=== PATIENT | female | born 1955 | race Caucasian/White ===

== ENCOUNTER → 2018-12-24 14:22 | Outpatient (POV) | payer OTHER, SELFPAY | DX: Z00.00 Encounter for general adult medical examination without abnormal findings (principal) ==

== ENCOUNTER 2020-11-17 21:08 | Observation (INO) | payer MEDICARE, SELFPAY ==
[2020-11-17] VITALS (7 sets, daily range): BP systolic 147–194; BP diastolic 69–101; PULSE 73–81; RESP 16–23; TEMP 37.2; O2SAT 95–99; BMI 22.3
--- NOTE | 2020-11-17 21:03 | ECG_ITS ---
APPROVED REPORT Exam: Resting ECG HR:71 bpm ECG Measurements Heart Rate 71 AXES NM 152 P 57 QRSd 78 QRS 74 QT 364 T 78 QTc 395 Conclusion Normal sinus rhythm Septal infarct, age undetermined Abnormal ECG Electronically signed by : Antonio Vega, 11/18/2020 10:20:08
--- NOTE | 2020-11-17 21:18 | XR_ITS ---
PROCEDURE INFORMATION: Exam: XR Chest Exam date and time: 11/17/2020 9:18 PM Age: 65 years old Clinical indication: Sternal or substernal pain; Patient HX: Mid chest pain non smoker; Additional info: Cp TECHNIQUE: Imaging protocol: XR of the chest. Views: 2 views. COMPARISON: No relevant prior studies available. FINDINGS: Lungs: Mild pulmonary hyperinflation.There is no evidence of focal pulmonary consolidation. Pleural spaces: Unremarkable. No significant pleural effusion. No pneumothorax. Heart/Mediastinum: The cardiac silhouette is normal. Bones/joints: Mild thoracic spine degenerative changes, disc narrowing and spondylosis. The sternum appears intact, as visualized. IMPRESSION: No acute findings.
--- NOTE | 2020-11-17 21:20 | HMH.EDCP ---
ED Disposition Clinical Impression: Chest pain Qualifiers: Chest pain type: precordial pain Qualified Code(s): R07.2 - Precordial pain Disposition: Admitted as Observation Condition on Discharge: Good Referrals: Provider,Referral, [Referring] - - Critical Care Critical Care Time: No Attestation: On 11/17/20, the high probability of a clinically significant, sudden or life threatening deterioration of the following system(s) required my full and direct attention, intervention and personal management. The time I documented below is in addition to time spent performing reported procedures but includes the following listed in this critical care notation. Medical Decision Making - Medical Records Medical records reviewed: Yes: I reviewed the patient's medical records. - [place] Inquiry Pt receiving controlled substance: No Vital Signs: 11/17/20 21:08 11/17/20 21:20 11/17/20 21:31 Temperature 98.9 F Temperature Source Oral Pulse Rate 76 80 Pulse Rate [Left Radial] 78 Respiratory Rate 16 Blood Pressure 174/100 H 147/69 H Blood Pressure [Right Arm] 194/101 H Blood Pressure Mean 118 113 Blood Pressure Mean [Right Arm] 132 Blood Pressure Source [Right Arm] Automatic Cuff Blood Pressure Position [Right Arm] Supine 02 Sat by Pulse Oximetry 97 99 95 Oxygen Delivery Method Room Air 11/17/20 22:00 Temperature Temperature Source Pulse Rate 75 Pulse Rate [Left Radial] Respiratory Rate 16 Blood Pressure 148/79 H Blood Pressure [Right Arm] Blood Pressure Mean 102 Blood Pressure Mean [Right Arm] Blood Pressure Source [Right Arm] Blood Pressure Position [Right Arm] 02 Sat by Pulse Oximetry 96 Oxygen Delivery Method Room Air - Lab Data Lab results reviewed: Yes: I reviewed the patient's lab results. Lab Results 11/17/20 21:05: WBC 4.7 L, RBC 4.81, Hgb 15.4, Hct 45.2, MCV 93.9, MCH 32.1 H, MCHC 34.2, RDW 13.6, Plt Count 197, MPV 7.9, Neut % (Auto) 47.6, Lymph % (Auto) 41.6, [place] % (Auto) 7.0, Eos % (Auto) 3.2, Baso % (Auto) 0.6, Neut # (Auto) 2.3, Lymph # (Auto) 2.0, [place] # (Auto) 0.3, Eos # (Auto) 0.2, Baso # (Auto) 0.0 11/17/20 21:05: Sodium 140, Potassium 4.0, Chloride 103, Carbon Dioxide 32 H, Anion Gap 9.0, BUN 6 L, Creatinine 0.70, Estimated Creat Clear 52, Estimated GFR 84, Est GFR ( Amer) 102, Glucose 116 H, Calcium 9.9, Troponin I < 0.01, C-Reactive Protein 4.5 H 11/17/20 21:05: ESR 21 11/17/20 21:05: Total Bilirubin 0.5, Direct Bilirubin 0.2, Conjugated Bilirubin 0.0, Indirect Bilirubin 0.3, Unconjugated Bilirubin 0.3, AST 41 H, ALT 23, Alkaline Phosphatase 103, Total Protein 8.0, Albumin 4.6, Procalcitonin 0.072 11/17/20 21:05: Amylase 92, Lipase 201 Result diagrams: 11/17/20 21:05 11/17/20 21:05 Orders (Tests/Meds): ED MEDICATIONS Generic Name Dose Route Start Last Admin Trade Name Freq PRN Reason Stop Dose Admin Sodium Chloride 1,000 mls @ 999 mls/hr 11/17/20 21:30 11/17/20 21:22 Sod Chlor 0.9% 1000ml Bag IV 11/17/20 22:30 999 mls/hr .Q1H1M REYNA Administration Sodium Chloride 8 ml 11/17/20 21:18 Sodium Chloride 0.9% 10ml Vial IV 12/17/20 21:17 NEEDED PRN dilute pepcid Discontinued Medications Generic Name Dose Route Start Last Admin Trade Name Freq PRN Reason Stop Dose Admin Famotidine 20 mg 11/17/20 21:18 11/17/20 21:21 Famotidine 20mg/2ml Vial IV 11/17/20 21:19 20 mg ONCE ONE Administration Metoclopramide HCl 10 mg 11/17/20 21:18 11/17/20 21:21 Metoclopramide Hcl 10mg/2ml Vial IVP 11/17/20 21:19 10 mg ONCE ONE Administration Nitroglycerin 0.4 mg 11/17/20 21:24 11/17/20 21:23 Nitroglycerin 0.4mg Sl Tablet SL 11/17/20 21:25 0.4 mg ONCE ONE Administration Nitroglycerin 1 gm 11/17/20 21:54 11/17/20 21:55 Nitroglycerin 1 Gm Ointment TD 11/17/20 21:55 1 gm ONCE ONE Administration ORDERS Category Date Time Status Covid-19 Nasal PCR ([facility]) Routine Lab 11/17/20 22:27 O
--- NOTE | 2020-11-17 21:24 | PC.NURSE ---
pt gone to radiology
[2020-11-17 21:25] LABS: Basophils % 0.6 % (0.1-2.0); Eosinophils # 0.2 K/mm3 (0.0-0.4); Eosinophils % 3.2 % (0.1-12.0); Hematocrit 45.2 % (37.0-47.0); Hemoglobin 15.4 g/dL (12.2-16.2); Lymphocytes % 41.6 % (10-50); Mean Corpuscular HGB Conc 34.2 g/dL (31.8-35.4); Mean Corpuscular Hemoglobin 32.1 pg (27.0-31.2); Mean Corpuscular Volume 93.9 fl (81-99); Mean Platelet Volume 7.9 fl (7.4-10.4); Monocytes # 0.3 K/mm3 (0.1-1.0); Neutrophils # 2.3 K/mm3 (1.8-7.8); Neutrophils % 47.6 % (37.0-80.0); Platelet Count 197 K/mm3 (142-424); Red Blood Count 4.81 M/mm3 (4.20-5.40); Red Cell Distribution Width 13.6 % (11.5-17.5); White Blood Count 4.7 K/mm3 (4.8-10.8)
--- NOTE | 2020-11-17 21:27 | PC.NURSE ---
pt is back from radiology
[2020-11-17 21:30] LABS: Alanine Aminotransferase 23 U/L (12-78); Albumin Level 4.6 g/dl (3.5-5.0); Alkaline Phosphatase 103 U/L (38-126); Aspartate Amino Transferase 41 U/L (14-36); Bilirubin,Direct 0.2 mg/dl (0.0-0.4); Bilirubin,Indirect 0.3 mg/dL (0.0-0.9); Bilirubin,Total 0.5 mg/dl (0.2-1.3); Bilirubin,Unconjugated 0.3 mg/dL (0.0-1.1)
[2020-11-17 21:32] LABS: Blood Urea Nitrogen 6 mg/dl (7-17); Calcium 9.9 mg/dl (8.4-10.2); Carbon Dioxide 32 mmol/L (22.0-30.0); Chloride 103 mmol/L (98-107); Creatinine Clearance Estimated 52 mL/min (50-200); Estimated Glomerular Filt Rate 84 ml/min (>60); GFR (African American) 102 ML/MIN (>60); Glucose 116 mg/dl (74-100); Sodium 140 mmol/L (136-145)
[2020-11-17 21:37] LABS: C-Reactive Protein 4.5 mg/L (0-4)
[2020-11-17 21:40] LABS: Amylase 92 U/L (30-110); Lipase 201 U/L (23-300)
[2020-11-17 21:50] LABS: Erythrocyte Sedimentation Rate 21 mm/hr (0-30)
[2020-11-17 21:51] LABS: Procalcitonin 0.072 ng/mL (0.0-2.0)
[2020-11-17 21:54] LABS: Troponin I < 0.01 ng/ml (0.00-0.034)
--- NOTE | 2020-11-17 22:22 | ECG_ITS ---
APPROVED REPORT Exam: Resting ECG HR:73 bpm ECG Measurements Heart Rate 73 AXES NJ 168 P 65 QRSd 82 QRS 69 QT 384 T 82 QTc 423 Conclusion Normal sinus rhythm Low voltage QRS Septal infarct, age undetermined Abnormal ECG Electronically signed by : Antonio Vega, 11/18/2020 10:19:33
--- NOTE | 2020-11-17 22:28 | PC.NURSE ---
Dr. Weaver s/w Dr. Walker
[2020-11-17 22:31] LABS: Adenovirus,PCR Not Detected (NotDetected); Bordetella Pertussis Not Detected (NotDetected); Chlamydophila Pneumoniae, PCR Not Detected (NotDetected); Coronavirus 19, PCR Not Detected (NotDetected); Coronavirus 229E Not Detected (NotDetected); Coronavirus NL63 Not Detected (NotDetected); Coronavirus OC43 Not Detected (NotDetected); Coronovirus HKU1,PCR Not Detected (NotDetected); Human Metapneumovirus Not Detected (NotDetected); Influenza A, PCR Not Detected (NotDetected); Influenza AH1, 2009 Not Detected (NotDetected); Influenza AH1, PCR Not Detected (NotDetected); Influenza AH3,PCR Not Detected (NotDetected); Influenza B, PCR Not Detected (NotDetected); Mycoplasma Pneumoniae, PCR Not Detected (NotDetected); Parainfluenza 1, PCR Not Detected (NotDetected); Parainfluenza 2, PCR Not Detected (NotDetected); Parainfluenza 3, PCR Not Detected (NotDetected); Parainfluenza 4, PCR Not Detected (NotDetected); Respiratory Syncytial Virus Not Detected (NotDetected); Rhinovirus/Enterovirus Not Detected (NotDetected)
[2020-11-17 22:42] LABS: HDL Cholesterol 36 mg/dl (40-60)
[2020-11-17 22:53] LABS: Chol/HDL Ratio 9.4 (1-3.5); Cholesterol 337 mg/dl (140-200); Direct LDL Cholesterol 167.55 mg/dL (100-129); Triglycerides 621 mg/dl (30-150)
[2020-11-18] VITALS (10 sets, daily range): BP systolic 129–161; BP diastolic 74–96; PULSE 60–84; RESP 14–18; TEMP 36.4–36.9; O2SAT 94–100; BMI 22.1
--- NOTE | 2020-11-18 00:34 | PC.NURSE ---
PT ARRIVED O FLOOR BY WHEELCHAIR
[2020-11-18 00:57] LABS: Troponin I < 0.01 ng/ml (0.00-0.034)
[2020-11-18 03:40] LABS: Basophils % 0.6 % (0.1-2.0); Eosinophils # 0.1 K/mm3 (0.0-0.4); Eosinophils % 3.1 % (0.1-12.0); Lymphocytes # 1.8 K/mm3 (0.7-4.5); Lymphocytes % 44.2 % (10-50); Mean Corpuscular Hemoglobin 32.5 pg (27.0-31.2); Mean Corpuscular Volume 92.9 fl (81-99); Mean Platelet Volume 7.9 fl (7.4-10.4); Monocytes # 0.3 K/mm3 (0.1-1.0); Monocytes % 6.6 % (1.7-9.3); Neutrophils # 1.9 K/mm3 (1.8-7.8); Neutrophils % 45.5 % (37.0-80.0); Platelet Count 152 K/mm3 (142-424); Red Blood Count 4.19 M/mm3 (4.20-5.40); Red Cell Distribution Width 13.4 % (11.5-17.5); White Blood Count 4.2 K/mm3 (4.8-10.8)
[2020-11-18 03:47] LABS: Anion Gap 6.9 mEq/L (5-15); Blood Urea Nitrogen 5 mg/dl (7-17); Carbon Dioxide 28 mmol/L (22.0-30.0); Chloride 109 mmol/L (98-107); Creatinine Clearance Estimated 52 mL/min (50-200); Estimated Glomerular Filt Rate 84 ml/min (>60); GFR (African American) 102 ML/MIN (>60); Glucose 94 mg/dl (74-100); Potassium 3.9 mmoL/L (3.5-5.1); Sodium 140 mmol/L (136-145)
[2020-11-18 03:54] LABS: Hemoglobin 13.6 g/dL (12.2-16.2)
[2020-11-18 03:59] LABS: Troponin I < 0.01 ng/ml (0.00-0.034)
[2020-11-18 04:08] LABS: Calcium 8.9 mg/dl (8.4-10.2)
--- NOTE | 2020-11-18 06:39 | PC.NURSE ---
No acute changes noted. Pt is resting well. No c/o pain since arrival to floor. VSS. Pt remains NSR on telemetry. No concerns at this time. Will continue to monitor.
--- NOTE | 2020-11-18 07:08 | CA_ITS ---
APPROVED REPORT Exam: Exercise Treadmill Technologist: erin gonzalez, Ht: 5 ft 4 in Wt: 129 lbs BSA: 1.62 m2 HR: 91 bpm BP: 180/100 mmHg Indications: CP Medical History Medications: Synthroid,,,,, Allergies: NKA Cardiac Risk Factors: Hyperlipidemia Stress Test Details Test: Angel HR Resting HR: 85 bpm Max Heart Rate (APMHR): 155.214051 bpm Max HR Achieved: 160 bpm Target HR (85% APMHR): 131.585440 bpm % of APMHR: 103.23 BP Resting BP: 186/100 mmHg Max BP: 186/100 mmHg Recovery BP: 180.0/97.0 mmHg ECG Resting ECG: Sinus rhythm Clinical Exercise duration: 05:43 min Highest Stage Achieved: Stage 2: 2.5 mph at 12% grade. Exercise capacity: 7.0 METs Stress ECG Conclusion Angel protocol completed. Patient had chest pain and SOB during peak exercise which resolved during recovery. No ectopy. Less than 1.5mm ST Depression. Images to follow. Test Summary REST . . . . . . . Standing REST 02:47 0.0 0.0 85 . 186/100 . . Stage 1 01:00 10.0 1.7 113 . . . . Stage 1 02:00 10.0 1.7 132 . . . . Stage 1 03:00 10.0 1.7 139 . 161/102 . . Stage 2 01:00 12.0 2.5 149 . . . . Stage 2 . . . . . . . Cardiolite injected Stage 2 02:00 12.0 2.5 156 . . . . Stage 2 02:43 12.0 2.5 158 . 171/105 . Stop exercise at 05:43 RECOVERY 01:00 0.0 0.0 123 . . . . RECOVERY 02:00 0.0 0.0 96 . . . . RECOVERY 03:00 0.0 0.0 105 . 180/ 97 . . RECOVERY 04:00 0.0 0.0 90 . 180/ 97 . . RECOVERY 05:00 0.0 0.0 96 . 146/ 93 . . RECOVERY 05:42 0.0 0.0 89 . 160/ 93 . . Electronically signed by : Richard Kelly, 11/18/2020 15:12:47
--- NOTE | 2020-11-18 07:08 | NM_ITS ---
APPROVED REPORT Exam: Nuclear Stress Test Indication: HYPERLIPIDEMIA, FM HX, C.P., PALPATATIONS, FATIGUE Patient Location: Inpatient Stress Tech: Fatou Shehean MA Tech:TITI Parry RT (R)(N)(M) Ht: 5 ft 4 in Wt: 130 lbs Bra Size: 36C HR: 91 bpm BP: 180/100 mmHg BSA: 1.63 m2 BMI: 22.3 History: HYPERLIPIDEMIA, FM HX, C.P., PALPATATIONS, FATIGUE Procedure: Patient exercised on Angel protocol 5:43 minutes and sec, resting heart rate 91 bpm, resting blood pressure 180/100 mmHg, with exercise maximum heart rate achived was 160 bpm which is 103 % of the maximum predicted heart rate and blood pressure was 171/105 mmHg. Test was stopped due to FATIGUE. Patient denied any complaint of chest pain. Patient has Adequate exercise capacity, achieved 7.0 METs of workload on treadmill, the blood pressure response to exercise was Abnormal. Electrocardiogram Resting electrocardiogram showed sinus rhythm, nonspecific ST-T changes, with exercise there is additional millimeter ST segment depression noted from the baseline EKG. The EKG portion of the exercise Myoview is nondiagnostic due to baseline abnormal EKG. Cardiac Stress and Resting SPECT Images: Cardiac Stress and Resting SPECT images were obtained using technetium 99m Myoview 31.5 mCi stress and 10.07 mCi at rest. Gated SPECT for analysis of segmental wall motion and calculation of the ejection fraction also done. Prone images were also obtained. Cardiac stress and resting SPECT images show uniform myocardial activity without segmental perfusion abnormality, computer derived ejection fraction is 62% with no regional wall motion abnormality, right ventricle is normal size and contractility. Conclusion: 1. The EKG portion of the exercise Myoview is nondiagnostic due to baseline abnormal EKG, patient has adequate exercise capacity achieved 7 mets of workload on treadmill, the blood pressure response to exercise was abnormal, there is no exercise-induced chest discomfort test was stopped due to shortness of breath and fatigue. 2. No scintigraphic evidence of reversible ischemia seen, computer derived ejection fraction 62% with no regional wall motion abnormality, right ventricle is normal size and contractility. Electronically signed by : Richard Kelly, 11/18/2020 15:24:06
--- NOTE | 2020-11-18 07:25 | HMH.HP ---
*Admission Date: 11/18/20 *Chief complaint: Chest pain *History of present illness: 65-year-old female presented to the emergency department yesterday evening with lower chest and epigastric discomfort that she describes as feeling like gas . Patient was at home when pain began. She was at rest when pain began. Earlier that evening patient had eaten pizza followed by ice cream and a soft drink. However once discomfort did not relieve after several minutes patient sought treatment at the emergency department. She denies associated nausea, diaphoresis, shortness of breath. She does admit that recently she has had similar discomfort when she is walking for exercise. When she has her exertional discomfort she also denies shortness of breath, nausea, diaphoresis. Discomfort is nonradiating. [facility] History I have reviewed the patient's past medical history: Yes Medical History: Reports:: Hyperlipidemia Denies:: Cancer, Diabetes Mellitus Type 1, Diabetes Mellitus Type 2, MRSA *Have you ever received a pneumonia vaccine?: No *Have you received a flu vaccine this season?: No Other Surgeries: Yes: Colonoscopy Amputation: No - *Social History Smoking Status: Former smoker Tobacco Type: cigarettes Alcohol Intake: never *Occupational Status:: retired *Travel in the last 8 weeks: None Family Hx:: Cancer, Coronary Artery Disease, Heart Attack, Hyperlipidemia, Hypertension, Thyroid Disorder, Alcoholism Review of Systems - Constitutional Denies anorexia, Denies body ache(s) - Eyes Denies blurry vision - ENT Denies bleeding gums - *Cardiovascular Reports chest pain, Reports chest pain with activity, Denies leg pain with activity, Denies shortness of breath, Denies shortness of breath with activity, Denies generalized swelling, Denies lightheadedness - *Respiratory Denies change in phlegm color, Denies chest congestion, Denies cough - *Gastrointestinal Denies abdominal pain, Denies belching, Denies bloating - *Genitourinary Denies absent period, Denies painful urination - *Musculoskeletal Denies joint pain - Integumentary/Breasts Denies hair loss - *Neurologic Denies localized weakness, Denies headache(s), Denies seizure-like activity Meds Home Medications Medication Instructions Recorded Confirmed Type Levothyroxine Sodium [Synthroid 112 mcg PO DAILY 11/17/20 11/18/20 History 112mcg (0.112mg) tablet] Allergies Allergy/AdvReac Type Severity Reaction Status Date / Time No Known Allergies Allergy Verified 11/17/20 21:09 Exam Vital signs and Labs for Last 24 Hours: Temp Pulse Resp BP Pulse Ox 97.6 F 74 17 150/91 H 99 11/18/20 04:00 11/18/20 04:00 11/18/20 04:00 11/18/20 04:00 11/18/20 04:00 Laboratory Results - last 24 hr 11/17/20 21:05: WBC 4.7 L, RBC 4.81, Hgb 15.4, Hct 45.2, MCV 93.9, MCH 32.1 H, MCHC 34.2, RDW 13.6, Plt Count 197, MPV 7.9, Neut % (Auto) 47.6, Lymph % (Auto) 41.6, [place] % (Auto) 7.0, Eos % (Auto) 3.2, Baso % (Auto) 0.6, Neut # (Auto) 2.3, Lymph # (Auto) 2.0, [place] # (Auto) 0.3, Eos # (Auto) 0.2, Baso # (Auto) 0.0 11/17/20 21:05: Sodium 140, Potassium 4.0, Chloride 103, Carbon Dioxide 32 H, Anion Gap 9.0, BUN 6 L, Creatinine 0.70, Estimated Creat Clear 52, Estimated GFR 84, Est GFR ( Amer) 102, Glucose 116 H, Calcium 9.9, Troponin I < 0.01, C-Reactive Protein 4.5 H 11/17/20 21:05: ESR 11/17/20 21:05: Total Bilirubin 0.5, Direct Bilirubin 0.2, Conjugated Bilirubin 0.0, Indirect Bilirubin 0.3, Unconjugated Bilirubin 0.3, AST 41 H, ALT 23, Alkaline Phosphatase 103, Total Protein 8.0, Albumin 4.6, Procalcitonin 0.072 11/17/20 21:05: Amylase 92, Lipase 201 11/17/20 21:05: Triglycerides 621 H, Cholesterol 337 H, LDL Cholesterol Direct 167.55 H, HDL Cholesterol 36 L, Cholesterol/HDL Ratio 9.4 H 11/17/20 21:50: Chlamy pneumoniae PCR Not detected, Adenovirus (PCR) Not detected, B. pertussis DNA (PCR) Not detected, Coronavirus OC43 (PCR) Not detected, Coronavirus HKU1 (PCR)
--- NOTE | 2020-11-18 10:15 | HMH.PHAVTE ---
[facility] Pharmacy VTE Monitoring - Patient Demographics Admission date: 11/18/20 Report Date: 11/18/20 Time: 10:16 Allergies/Adverse Reactions: Patient Allergies No Known Allergies Allergy (Verified 11/17/20 21:09) Height: 1.63 m Weight: 58.684 kg Patient Problems: Current Active Problems Chest pain (Acute) - VTE Risk Labs: VTE Related Lab Results Hgb 13.6 g/dL (12.2-16.2) D 11/18/20 03:30 Hct 39.0 % (37.0-47.0) 11/18/20 03:30 Plt Count 152 K/mm3 (142-424) 11/18/20 03:30 BUN 5 mg/dl (7-17) L 11/18/20 03:30 Creatinine 0.70 mg/dl (0.52-1.04) 11/18/20 03:30 Estimated Creat Clear 52 mL/min (50-200) 11/18/20 03:30 Was VTE Risk Assessment Performed: Yes VTE Score: 1 VTE Risk Level: Low Risk Clinical Trial Participant: No - Prophylaxis Types of VTE Prophylaxis: TEDS Knee High
--- NOTE | 2020-11-18 11:45 | INFXCTL.NOTE ---
Alert and oriented. Have educated pt of need for tennis shoes for stress test. Have also made pt aware the plan for the stress test is to be scheduled for 12:00. CB in reach and has been at bedside. Pt has no c/o's of pain or discomfort. VSS.
--- NOTE | 2020-11-18 14:16 | PC.NURSE ---
Pt still off floor for stress test at this time.
--- NOTE | 2020-11-18 15:57 | HMH.DCSUM ---
General - General Admission date:: 11/18/20 Discharge date: 11/18/20 HPI HPI: 65-year-old female presented to the emergency department yesterday evening with lower chest and epigastric discomfort that she describes as feeling like gas . Patient was at home when pain began. She was at rest when pain began. Earlier that evening patient had eaten pizza followed by ice cream and a soft drink. However once discomfort did not relieve after several minutes patient sought treatment at the emergency department. She denies associated nausea, diaphoresis, shortness of breath. She does admit that recently she has had similar discomfort when she is walking for exercise. When she has her exertional discomfort she also denies shortness of breath, nausea, diaphoresis. Discomfort is nonradiating. Hospital Course Hospital Course: Patient was admitted and ruled out for [place]. On 11/18 she underwent EST with Myoview which was negative for ischemia. Patient was discharged to home and will follow up in one week in the office Objective Vital signs: Temp Pulse Resp BP Pulse Ox 98.4 F 84 15 140/96 H 99 11/18/20 15:49 11/18/20 15:49 11/18/20 15:49 11/18/20 15:49 11/18/20 15:49 no acute distress - *Routine HEENT Exam Head: Present: normocephalic Eye: Present: EOMI, PERRL ENT: Present: mucous membranes moist - *Routine Neck Exam Present: supple - *Routine Respiratory Exam Present: CTA bilaterally - *Routine Cardiovascular Exam Present: RRR - *Routine Abdominal Exam Present: soft, normoactive bowel sounds. Absent: tenderness - *Routine Rectal Exam Comments: deferred - *Routine Exam Comments: deferred - *Routine Extremities Exam Absent: cyanosis, clubbing, edema - *Routine Skin Exam Present: warm. Absent: rash - Detailed Eye Exam Eyelids: Bilateral normal inspection Results Labs on day of discharge: Labs from last 24 hours 11/18/20 11/18/20 11/18/20 03:30 03:30 03:30 WBC 4.2 L RBC 4.19 L Hgb 13.6 D Hct 39.0 MCV 92.9 MCH 32.5 H MCHC 35.0 RDW 13.4 Plt Count 152 MPV 7.9 Neut % (Auto) 45.5 Lymph % (Auto) 44.2 [place] % (Auto) 6.6 Eos % (Auto) 3.1 Baso % (Auto) 0.6 Neut # (Auto) 1.9 Lymph # (Auto) 1.8 [place] # (Auto) 0.3 Eos # (Auto) 0.1 Baso # (Auto) 0.0 ESR Sodium 140 Potassium 3.9 Chloride 109 H Carbon Dioxide 28 Anion Gap 6.9 BUN 5 L Creatinine 0.70 Estimated Creat Clear 52 Estimated GFR 84 Est GFR ( Amer) 102 Glucose 94 Calcium 8.9 D Total Bilirubin Direct Bilirubin Conjugated Bilirubin Indirect Bilirubin Unconjugated Bilirubin AST ALT Alkaline Phosphatase Troponin I < 0.01 C-Reactive Protein Total Protein Albumin Triglycerides Cholesterol LDL Cholesterol Direct HDL Cholesterol Cholesterol/HDL Ratio Amylase Lipase Procalcitonin Chlamy pneumoniae PCR Adenovirus (PCR) B. pertussis DNA (PCR) Coronavirus OC43 (PCR) Coronavirus HKU1 (PCR) Coronavirus 229E (PCR) SARS-CoV-2 (PCR) Coronavirus NL63 (PCR) Human Metapneumovir PCR Influenza A (H1) PCR Influ A (H1N1/09) PCR Influenza A (H3) PCR Influenza Type A (PCR) Influenza Type B (PCR) M. pneumoniae (PCR) Parainfluenza 1 (PCR) Parainfluenza 2 (PCR) Parainfluenza 3 (PCR) Parainfluenza 4 (PCR) RSV (PCR) Entero/Rhino (PCR) 11/18/20 11/17/20 11/17/20 00:25 21:50 21:05 WBC RBC Hgb Hct MCV MCH MCHC RDW Plt Count MPV Neut % (Auto) Lymph % (Auto) [place] % (Auto) Eos % (Auto) Baso % (Auto) Neut # (Auto) Lymph # (Auto) [place] # (Auto) Eos # (Auto) Baso # (Auto) ESR Sodium Potassium Chloride Carbon Dioxide Anion Gap BUN Creatinine Estimated Creat Clear Estimated GFR E
== END 2020-11-18 16:45 | disposition home or self-care (01) ==
LOC: ER 22:32 → 2ND 22:57
PROVIDERS: Admitting Provider Internal Medicine Adolescent Medicine; Emergency Provider Emergency Medicine; PCP Family Medicine; Visit Provider Family Medicine
DX: R07.2 Precordial pain (principal); I10 Essential (primary) hypertension; E03.9 Hypothyroidism, unspecified; Z87.891 Personal history of nicotine dependence
CPT/HCPCS: 36415; 71046; 78452; 80048; 80061; 80076; 82150; 83690; 84145; 84484; 85025; 85651; 86140; 87581; 87633; 87798; 93005; 93017; 96365; 96375; 99284; A9502; G0378

== ENCOUNTER → 2021-08-04 08:50 | Outpatient (CLI) | payer MEDICARE, SELFPAY ==
--- NOTE | 2021-08-04 08:56 | XR_ITS ---
FINAL REPORT TECHNIQUE: Bone densitometry calculations of the lumbar spine and left hip were obtained. CLINICAL HISTORY: . post menopausal FINDINGS: Using L1-4, the bone mineral density of the spine is 0.757 g/cm2, corresponding to T-score of -2.6. Using the left hip, the bone mineral density of the femoral neck is 0.661 g/cm2, corresponding to a T-score of -1.7. NOTE: T-score: Standard deviation compared with peak bone mass of young adult mean. *Following the recommendations of the International Society of Bone Densitometry, classification of hip BMD is based on the lower of two T-scores; total hip or femoral neck. IMPRESSION: Osteoporosis of the lumbar spine with osteopenia of the proximal left femur. Reviewed, Interpreted and Dictated by Efraín Goldman III, MD Transcribed by Edmond Rodgers Authenticated by Efraín Goldman III, MD on 08/04/2021 09:51:36 AM [facility]
== END ==
PROVIDERS: PCP Internal Medicine Adolescent Medicine; Visit Provider Internal Medicine Adolescent Medicine
DX: Z78.0 Asymptomatic menopausal state (principal)
CPT/HCPCS: 77080

== ENCOUNTER → 2022-01-25 09:31 | Outpatient (CLI) | payer MEDICARE, SELFPAY ==
--- NOTE | 2022-01-25 09:37 | XR_ITS ---
FINAL REPORT CLINICAL HISTORY: RT WRIST PAIN FINDINGS: RIGHT WRIST Three views demonstrate no acute fracture or dislocation. The visualized joint spaces are normally aligned. There are mild degenerative changes. The soft tissues are unremarkable. IMPRESSION: Mild degenerative change. Reviewed, Interpreted and Dictated by Efraín Goldman III, MD Transcribed by Tameka Frost Authenticated and [facility]
== END ==
PROVIDERS: PCP Internal Medicine Adolescent Medicine; Visit Provider Internal Medicine Adolescent Medicine
DX: M25.531 Pain in right wrist (principal)
CPT/HCPCS: 73110